=== PATIENT | female | born 1965 ===

== ENCOUNTER 2020-11-22 09:17 | Emergency (ER) | payer BC ==
[2020-11-22 09:25] VITALS: BP 148/80; PULSE 84
--- NOTE | 2020-11-22 09:56 | EDM.PDOC ---
ED HPI GENERAL MEDICAL PROBLEM - General Chief Complaint: Upper Extremity Injury/Pain Stated Complaint: LT HAND SWELLING AND RED Time Seen by Provider: 11/22/20 09:41 Source of Information: Reports: Patient, RN Notes Reviewed - History of Present Illness INITIAL COMMENTS - FREE TEXT/NARRATIVE: 55 yr old female comes in with L hand pain, stiffness swelling. 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 She than used the hand more than usual again yesterday. Has also been putting some type of "pain reliever creme" on the hand about twice a day. No other joints giving her trouble at this time. Left Hand Pain Score (Numeric/FACES): 8 - Related Data Allergies Allergy/AdvReac Type Severity Reaction Status Date / Time cinnamon Allergy Facial Verified 11/22/20 09:26 Swelling droperidol Allergy Facial Verified 11/22/20 09:26 Swelling gluten Allergy Diarrhea Verified 11/22/20 09:26 Home Meds: Home Meds Ascorbate Calcium [Vitamin C] 500 mg PO DAILY 12/11/14 [History] Calcium Carbonate/Vitamin D3 [Caltrate 600+D 1500 MG-400 Units] 1 tab PO DAILY 12/11/14 [History] Cholecalciferol (Vitamin D3) [Vitamin D3] 2,000 unit PO DAILY 12/11/14 [History] Clotrimazole [Clotrimazole 1%] 15 gm .XX BID PRN 12/11/14 [History] EPINEPHrine [Epipen 2-Michael] 0.3 mg IM ASDIRECTED PRN 12/11/14 [History] Levothyroxine Sodium [Synthroid] 75 mcg PO ACBREAKFAST 12/11/14 [History] Menthol/Zinc Oxide [Calmoseptine Ointment Packet] 3.5 gm TP DAILY PRN 12/11/14 [History] Multivitamin with Minerals [Multiple Vitamin] 1 tab PO DAILY 12/11/14 [History] Potassium Chloride [Klor-Con M20] 20 meq PO BID 12/11/14 [History] rOPINIRole [Requip] 2 mg PO BEDTIME 12/11/14 [History] Insulin Aspart (Niacinamide) [Fiasp 100 Unit/ml Flextouch] 1 dose SUBCUT TID 11/22/20 [History] predniSONE [Prednisone] 50 mg PO DAILY #7 tablet 11/22/20 [Rx] Past Medical History Other Gastrointestinal History: colitis, 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 Endocrine/Metabolic History: Reports: Diabetes, Type I Other Endocrine/Metabolic History: hypothyroid Social & Family History - Tobacco Use Tobacco Use Status *Q: Never Tobacco User Second Hand Smoke Exposure: No - Caffeine Use Caffeine Use: Reports: Coffee, Soda - Recreational Drug Use Recreational Drug Use: No Review of Systems - Review of Systems Review Of Systems: See Below Constitutional: Denies: Chills, Fever Mouth/Throat: Reports: No Symptoms Respiratory: Reports: No Symptoms Cardiovascular: Reports: No Symptoms Musculoskeletal: Reports: Hand Pain Skin: Reports: Erythema (L hand) Neurological: Reports: No Symptoms ED EXAM, GENERAL - Physical Exam Exam: See Below General Appearance: Alert, No Apparent Distress Head: Atraumatic Neck: Supple Respiratory/Chest: No Respiratory Distress Cardiovascular: Regular Rate, Rhythm Extremities: Joint Swelling (Fingers of L hand and hand is diffusely swollen), Other (She has discomfort all finger flexion and extension L hand, remainder of jts not swollen or erythematous) Neurological: Alert, Oriented, No Motor/Sensory Deficits Skin Exam: Warm, Dry, No Rash Course - Vital Signs Last Recorded V/S: Last Vital Signs Temp 96.9 F 11/22/20 09:24 Pulse 84 11/22/20 09:24 Resp 20 11/22/20 09:24 BP 148/80 H 11/22/20 09:24 Pulse Ox 98 11/22/20 09:24 - Re-Assessments/Exams Free Text/Narrative Re-Assessment/Exam: 11/22/20 13:05 Some of the hand and fiinger swelling and inflamation looks like some type of sensitivity dermatitis, the hand creme that she is using could be doing this, Will put her back on prednisone and have her stop the hand creme. Discharge instr. as documented. Departure - Departure Time of Disposition: 09:53 Disposition: Home, Self-Care 01 Condition: Fair Clinical Impression: Arthritis of hand, left - Discharge Information Prescriptions: predniSONE [Prednisone] 50 mg PO DAILY #7 tablet Instructions: Arthritis Referrals: Helena Meza PA-C [Primary Care Provider] - Forms: ED Department Discharge Additional Instructions: Prednisone 50 mg Q AM for 4 days, than 25 mg for 4 days. Prescription has been sent to [facility] the [facility]. Rest and elevate hand as much as possible. Use splint as needed. Ice packs as needed for swelling. Stop the pain cream. Because the skin of your hand is so inflamed right now do not put any creams or lotions on your hand until further directed. See Dr Recinos early next week for recheck. Call for appt. Tuesday AM. Sepsis Event Note (ED) - Evaluation Sepsis Screening Result: No Definite Risk - Focused Exam Vital Signs: Vital Signs Temp Pulse Resp BP Pulse Ox 11/22/20 09:24 96.9 F 84 20 148/80 H 98
== END 2020-11-22 10:22 | disposition home or self-care (01) ==
LOC: JD.ED 09:17
DX: M19.042 Primary osteoarthritis, left hand (principal); E10.9 Type 1 diabetes mellitus without complications; E03.9 Hypothyroidism, unspecified; Z91.018 Allergy to other foods; Z88.8 Allergy status to other drugs, medicaments and biological substances; Z79.4 Long term (current) use of insulin; Z79.899 Other long term (current) drug therapy
CPT/HCPCS: 99283